=== PATIENT | male | born 1985 | race Two or more races ===

== ENCOUNTER 2018-02-25 20:38 | Emergency (ER) | payer OTHER ==
[~2018-02-25] VITALS: Ht 177.8 cm; Wt 99.8 kg
[2018-02-25 21:06] VITALS: BP 135/91
[2018-02-26] MEDS ORDERED: KETOROLAC TROMETH 60MG/2ML VIAL IM ONE (02:15)
[2018-02-26] MEDS ORDERED: methylPREDNISolone SOD SUCC 125 MG/2 ML VL IM ONE (02:15)
== END 2018-02-26 02:47 | disposition home or self-care (01) ==
LOC: ER 20:38
DX: S63.502A Unspecified sprain of left wrist, initial encounter (principal); M62.838 Other muscle spasm; M54.5 Low back pain; V43.52XA Car driver injured in collision with other type car in traffic accident, initial encounter; Y93.89 Activity, other specified; Y99.8 Other external cause status; Y92.410 Unspecified street and highway as the place of occurrence of the external cause
CPT/HCPCS: 72131; 73100; 73562; 96372; 99284; J1885; J2930